=== PATIENT | male | born 2000 | race Caucasian/White ===

== ENCOUNTER 2020-02-01 17:51 | Emergency (ER) | payer OTHER ==
[~2020-02-01] VITALS: Ht 182.9 cm; Wt 146.3 kg
[2020-02-01 17:51] VITALS: BP 156/92
[2020-02-01] MEDS ORDERED: IBUP-1022 PO (20:13)
[2020-02-01] MEDS ORDERED: IBUPROFEN 600 MG TAB PO ONE (20:15)
--- NOTE | 2020-02-01 20:44 | REP ---
LEFT KNEE, FOUR VIEWS: FINDINGS: There is no evidence of an acute fracture, dislocation or intrinsic bone disease. IMPRESSION: No fracture or dislocation. Electronically Signed by Sg Soriano MD 02/02/2020 03:52 P
== END 2020-02-01 20:31 | disposition home or self-care (01) ==
LOC: M ED 17:51
DX: S83.412A Sprain of medial collateral ligament of left knee, initial encounter (principal); S83.002A Unspecified subluxation of left patella, initial encounter; X58.XXXA Exposure to other specified factors, initial encounter; Y92.018 Other place in single-family (private) house as the place of occurrence of the external cause

== ENCOUNTER → 2021-03-30 | Outpatient (REF) | payer OTHER ==
[~2021-03-30] MED LIST: IBUP-1022 PO
[2021-03-30 18:12] LABS: ALBUMIN 3.7 GM/DL (3.2-5.2); ALT/SGPT 56 U/L (12-78); BILIRUBIN,TOTAL 0.4 MG/DL (0.2-1.0); BLOOD UREA NITROGEN 12 MG/DL (7-18); CALCIUM LEVEL 9.8 MG/DL (8.5-10.1); CARBON DIOXIDE LEVEL 25 MEQ/L (21-32); CHLORIDE LEVEL 110 MEQ/L (98-107); CHOLESTEROL LEVEL 149 MG/DL (<200); CHOLESTEROL RISK RATIO 4.656 (<5); CREATININE FOR GFR 0.83 MG/DL (0.70-1.30); FREE T4 0.97 NG/DL (0.76-1.46); GLOMERULAR FILTRATION RATE > 60.0 (>60); GLUCOSE, FASTING 92 MG/DL (70-100); HDL CHOLESTEROL 32 MG/DL (>40); LDL CHOLESTEROL 103 MG/DL (<100); NON-HDL-C 117 MG/DL; POTASSIUM SERUM 4.6 MEQ/L (3.5-5.1); SODIUM LEVEL 142 MEQ/L (136-145); TOTAL 25(OH) VITAMIN D 16.9 NG/ML (30.0-100.0); TOTAL PROTEIN 7.3 GM/DL (6.4-8.2); TRIGLYCERIDES LEVEL 68 MG/DL (<150)
[2021-03-30 18:52] LABS: HEPATITIS C VIRUS ABY INDEX < 0.0 INDEX (<0.8); HIV 1&2 SCREEN CENTAUR NEGATIVE (NEGATIVE)
== END ==
LOC: M LAB REF 16:48
PROVIDERS: ATTEND Pediatrics
DX: Z11.3 Encounter for screening for infections with a predominantly sexual mode of transmission (principal); Z13.220 Encounter for screening for lipoid disorders; Z13.228 Encounter for screening for other metabolic disorders

== ENCOUNTER 2022-02-11 11:28 | Emergency (ER) | payer OTHER ==
[~2022-02-11] VITALS: Ht 185.4 cm; Wt 159.1 kg
[2022-02-11 14:21] LABS: RSV AMPLIFICATION NEGATIVE (NEGATIVE)
[2022-02-11] MEDS ORDERED: AMOX500C PO (14:34)
[2022-02-11 14:45] VITALS: BP 137/77
== END 2022-02-11 14:59 | disposition home or self-care (01) ==
LOC: M ED 11:28
DX: J01.90 Acute sinusitis, unspecified (principal); J45.909 Unspecified asthma, uncomplicated; E66.8 Other obesity

== ENCOUNTER 2022-04-03 06:21 | Emergency (ER) | payer OTHER ==
[~2022-04-03] VITALS: Ht 182.9 cm; Wt 159.1 kg
[~2022-04-03 06:21] MED LIST changes: +AMOX500C PO
[2022-04-03] MEDS ORDERED: ACETAMINOPHEN 500 MG TAB PO ONE (07:10)
[2022-04-03 08:15] VITALS: BP 111/50
[2022-04-03] MEDS ORDERED: VENTAER INH (09:09)
== END 2022-04-03 09:15 | disposition home or self-care (01) ==
LOC: M ED 06:21
DX: R50.9 Fever, unspecified (principal); R05.9 Cough, unspecified; U07.1 COVID-19

== ENCOUNTER → 2022-09-19 | Outpatient (REF) ==
[~2022-09-19] MED LIST changes: +VENTAER INH
== END ==
LOC: M LAB 14:17
PROVIDERS: ATTEND Nurse Practitioner Adult Health
DX: Z01.89 Encounter for other specified special examinations (principal)

== ENCOUNTER → 2022-10-08 | Outpatient (REF) | LOC: M EMP 12:49 | PROVIDERS: ATTEND Family Medicine | DX: Z20.822 Contact with and (suspected) exposure to COVID-19 (principal) ==

== ENCOUNTER → 2022-10-15 | Outpatient (REF) | LOC: M EMP 07:45 | PROVIDERS: ATTEND Family Medicine | DX: Z11.52 Encounter for screening for COVID-19 (principal) ==

== ENCOUNTER → 2022-10-22 | Outpatient (REF) | LOC: M EMP 08:29 | PROVIDERS: ATTEND Family Medicine | DX: Z11.52 Encounter for screening for COVID-19 (principal) ==